=== PATIENT | female | born 1970 | race Caucasian/White ===

== ENCOUNTER → 2019-01-26 | Outpatient (CLI) | payer MEDICAID, SELFPAY ==
[2015-09-17 06:32] VITALS: BMI 33.9
== END | disposition home or self-care (01) ==
LOC: LABSPEC 15:46
PROVIDERS: Referring Provider Obstetrics & Gynecology; Visit Provider Obstetrics & Gynecology
DX: Z12.4 Encounter for screening for malignant neoplasm of cervix (principal)
CPT/HCPCS: 88175; G0145